=== PATIENT | female | born 1975 | race Caucasian/White ===

== ENCOUNTER 2021-11-04 15:07 | Emergency (ER) | payer OTHER ==
[~2021-11-04] VITALS: Ht 160 cm; Wt 88.0 kg
[2021-11-04 15:13] VITALS: BP 138/88
[2021-11-04 19:10] VITALS: BP 138/88
--- NOTE | 2021-11-04 19:10 | NUR ---
Called patient -no show in lobby or outside.
--- NOTE | 2021-11-04 19:10 | NUR ---
Patient D/C without papers.
== END 2021-11-04 19:10 | disposition home or self-care (01) ==
LOC: MED 15:07
DX: A08.4 Viral intestinal infection, unspecified (principal)
CPT/HCPCS: 99281